=== PATIENT | female | born 1985 | race Caucasian/White ===

== ENCOUNTER 2016-12-15 14:33 | Emergency (ER) | payer MEDICAID ==
[2016-12-15 14:34] VITALS: BMI 29.6
[2016-12-15 14:47] VITALS: TEMP 98.1
[2016-12-15] MEDS ORDERED: Sodium Chloride 0.9% 1,000 ML IV SCH (15:00)
--- NOTE | 2016-12-15 15:08 | ED PDOC ---
HPI: Abdomen Time Seen by Provider: 12/15/16 14:52 Chief Complaint (Nursing): Abdominal Pain Chief Complaint (Provider): Abdominal Pain History Per: Patient History/Exam Limitations: no limitations Onset/Duration Of Symptoms: Days (7 days) Outside of [place] travel?: No Current Symptoms Are (Timing): Still Present Location Of Pain/Discomfort: RLQ Associated Symptoms: Nausea. denies: Vomiting, Diarrhea, Chest Pain, Constipation Additional Complaint(s): Nallely Sadler, a 31 year old female, presents to the ED complaining of abdominal pain x7 days. The patient reports that she initially feels pain in her right lower quadrant but it radiates to her right lower back. Denies vomiting, diarrhea, constipation, abnormal vaginal discharge/bleeding, chest pain, shortness of breath but does report some nausea. PMD: Marcos Shah Abnormal Vaginal Bleeding: No Past Medical History Reviewed: Historical Data, Nursing Documentation, Vital Signs Vital Signs: Last Vital Signs Temp 98.1 F 12/15/16 14:45 Pulse 88 12/15/16 17:07 Resp 15 12/15/16 17:07 BP 130/86 12/15/16 17:07 Pulse Ox 99 12/15/16 17:42 - Medical History PMH: HTN - Surgical History Surgical History: (x3) - Family History Family History: States: Unknown Family Hx - Home Medications Home Medications: Ambulatory Orders Medication Instructions Recorded Loratadine [Claritin] 10 mg PO DAILY PRN #3 tab 06/27/15 Ondansetron ODT [Zofran ODT] 4 mg PO Q8H PRN #20 odt 06/27/15 Vitamins6 [ 1 tab PO DAILY #30 tab 06/27/15 Vitamins] Labetalol HCl [Trandate] 200 mg PO BID 12/31/15 Docusate Sodium/Sennosides A 1 tab PO HS #30 tab 01/03/16 [Senokot S 50 MG-8.6 MG] Ferrous Sulfate 325 mg PO BID #60 tablet 01/03/16 Ibuprofen [Motrin] 600 mg PO Q6 #30 tab 01/03/16 Oxycodone HCl/Acetaminophen 1 each PO Q4 #20 tablet 01/03/16 [Percocet 5-325 mg Tablet] Nitrofurantoin Macrocrystals 100 mg PO BID #14 cap 12/15/16 [Macrobid] - Allergies Allergies/Adverse Reactions: Allergies Allergy/AdvReac Type Severity Reaction Status Date / Time Penicillins Allergy RASH Verified 12/15/16 14:45 Review of Systems ROS Statement: Except As Marked, All Systems Reviewed And Found Negative Constitutional: Negative for: Fever Cardiovascular: Negative for: Chest Pain Respiratory: Negative for: Shortness of Breath Gastrointestinal: Positive for: Nausea, Abdominal Pain (Right lower quadrant abdominal pain that radiates to right lower back.). Negative for: Vomiting, Diarrhea, Constipation Genitourinary Female: Negative for: Vaginal Discharge, Vaginal Bleeding Physical Exam - Reviewed Nursing Documentation Reviewed: Yes Vital Signs Reviewed: Yes - Physical Exam Appears: Positive for: Non-toxic, No Acute Distress Head Exam: Positive for: ATRAUMATIC, NORMOCEPHALIC Skin: Positive for: Normal Color, Warm, Dry Eye Exam: Positive for: Normal appearance, EOMI, PERRL ENT: Positive for: Normal ENT Inspection Neck: Positive for: Normal, Painless ROM, Supple Cardiovascular/Chest: Positive for: Regular Rate, Rhythm, Chest Non Tender. Negative for: Tachycardia Respiratory: Positive for: Normal Breath Sounds. Negative for: Wheezing, Respiratory Distress Gastrointestinal/Abdominal: Positive for: Soft, Tenderness (Scant right upper quadrant tenderness;Left and right lower quadrant tenderness.). Negative for: Guarding, Rebound Back: Positive for: Normal Inspection Extremity: Positive for: Normal ROM. Negative for: Tenderness, Deformity, Swelling Neurologic/Psych: Positive for: Alert, Oriented, Gait - Laboratory Results Result Diagrams: 12/15/16 15:50 12/15/16 15:50 - ECG O2 Sat by Pulse Oximetry: 99 (RA) Pulse Ox Interpretation: Normal Medical Decision Making Medical Decision Makin:52 Initial Impression: 31 year old female presenting with right lower quadrant abdominal pain Differentials: UTI vs Pyelonephritis vs vs Appendicitis vs Diverticulitis vs Renal Colic Initial Plan: * Comp Metabolic Panel * Lipase * CBC * NS 1000ml IV 1000mls/hr * Toradol 30mg IVP * Upreg * Urinalysis * Reevaluation Scribe Attestation Documented by Barbara Noonan acting as a scribe for Riddhi Winslow MD. Provider Attestation: All medical record entries made by the Scribe were at my direction and personally dictated by me. I have reviewed the chart and agree that the record accurately reflects my personal performance of the history, physical exam, medical decision making, and the department course for this patient. I have also personally directed, reviewed, and agree with the discharge instructions and disposition. 4:02PM negative. Patient has hematuria with flank pain. This is concerning for kidney stone. Will get CT 5:34PM Patient has normal renal function, no fever and normal wbc. UA shows 14 wbc, with rare bacteria and small leukocytes but negative nitrates. She is not . Ucx sent. CT shows "multiple b/l nonobstructing renal calculi, R greater than left with largest R renal calculus 9mm and largest left renal calculus 4mm. No urinary tract obstruction." Patient is pain free in ED and tolerating po. I spoke to patient and at length. Spoke to PMD dr. Shah who is aware and agrees that since they are non-obstructing she can follow-up with urology even though they are large. Patient is and therefore cannot give flomax. Will give ceftriaxone 1gm IV in ED now and then dc with macrobid. Patient understands to return with any worsening symptoms, worsening pain, fever, or vomiting. Disposition - Clinical Impression Clinical Impression: Renal colic - Disposition Referrals: Annalee Andres MD [Medical Doctor] - Disposition: Routine/Home Disposition Time: 17:37 Condition: GOOD Additional Instructions: Follow up with urology within 2 days. Take full course of antibiotics. Return to ED if condition worsens. Follow-up with PMD within 2 days. Prescriptions: Nitrofurantoin Macrocrystals [Macrobid] 100 mg PO BID #14 cap Instructions: Kidney Stones (ED), Renal Colic (ED) Print Language: ROMANIAN
[2016-12-15 15:55] LABS: BASO % 0.3 % (0.0-2.0); EOS % 0.4 % (0.0-4.0); HEMATOCRIT 36.7 % (34.0-47.0); LYMPH # 2.5 K/uL (1.0-4.3); LYMPH % 29.5 % (20.0-40.0); MEAN CELL VOLUME 97.2 fl (81.0-99.0); MEAN CORPUSCULAR HEMOGLOBIN 32.7 pg (27.0-31.0); MEAN CORPUSCULAR HGB CONC 33.6 g/dL (33.0-37.0); MEAN PLATELET VOLUME 9.4 fl (7.2-11.7); MONO # 0.6 K/uL (0.0-0.8); MONO % 6.9 % (0.0-10.0); NEUT # 5.2 K/uL (1.8-7.0); NEUT % 62.9 % (50.0-75.0); NRBC % 0.2 % (0.0-0.0); RED CELL DISTRIBUTION WIDTH 13.7 % (11.5-14.5); WHITE BLOOD COUNT 8.3 K/uL (4.8-10.8)
[2016-12-15 16:02] LABS: RBC URINE 95 /hpf (0-3); URINE BACTERIA RARE (<OCC); URINE BILIRUBIN NEGATIVE (NEGATIVE); URINE BLOOD MODERATE (NEGATIVE); URINE COLOR YELLOW (YELLOW); URINE GLUCOSE (UA) NEG (Normal); URINE KETONE TRACE mg/dL (NEGATIVE); URINE LEUKOCYTE ESTERASE SMALL Leu/uL (Negative); URINE PROTEIN 30 mg/dL (NEGATIVE); URINE UROBILINOGEN 0.2-1.0 mg/dL (0.2-1.0); WBC URINE 14 /hpf (0-5)
[2016-12-15 16:10] LABS: ALB/GLOB RATIO 1.3 (1.0-2.1); ALKALINE PHOSPHATASE 102 U/L (38-126); ALT/SGPT 33 U/L (9-52); AST/SGOT 19 U/L (14-36); BILIRUBIN,TOTAL 0.3 mg/dl (0.2-1.3); BLOOD UREA NITROGEN 16 mg/dl (7-17); CALCIUM 9.3 mg/dL (8.4-10.2); CARBON DIOXIDE 24 mmol/L (22-30); CHLORIDE 105 mmol/L (98-107); GFR AFRICAN-AMERICAN > 60; GLUCOSE,RANDOM 80 mg/dL (65-105); LIPASE 69 U/L (23-300); POTASSIUM 4.5 MMOL/L (3.6-5.0); SODIUM 140 mmol/l (132-148); TOTAL PROTEIN 8.3 G/DL (6.3-8.2)
[2016-12-15 17:08] VITALS: PULSE 88
--- NOTE | 2016-12-15 17:18 | CT ---
PROCEDURE: CT Abdomen and Pelvis without intravenous contrast HISTORY: hematuria, flnak pain COMPARISON: None. TECHNIQUE: Without contrast.. Contrast Dose: 0 Radiation dose: Total exam DLP = 595.43 mGy-cm. This CT exam was performed using one or more of the following dose reduction techniques: Automated exposure control, adjustment of the mA and/or kV according to patient size, and/or use of iterative reconstruction technique. FINDINGS: LOWER THORAX: Unremarkable. LIVER: Unremarkable. No gross lesion or ductal dilatation. GALLBLADDER AND BILE DUCTS: Unremarkable. PANCREAS: Unremarkable. No gross lesion or ductal dilatation. SPLEEN: Unremarkable. ADRENALS: Unremarkable. No mass. KIDNEYS AND URETERS: Multiple bilateral renal calculi, right greater than left. Largest right renal calculus is in the lower pole, and measures 9 mm. No obstructing calculi. Largest left renal calculus is in the mid aspect and measures 4 mm. No renal mass. No hydronephrosis. VASCULATURE: Unremarkable. No aortic aneurysm. BOWEL: Unremarkable. No obstruction. No gross mural thickening. APPENDIX: Unremarkable. Normal appendix. PERITONEUM: Unremarkable. No free fluid. No free air. LYMPH NODES: Unremarkable. No enlarged lymph nodes. BLADDER: Suboptimally distended. REPRODUCTIVE: Normal uterus. BONES: No acute fracture. OTHER FINDINGS: None. IMPRESSION: Multiple bilateral nonobstructing renal calculi, right greater than left. Largest right renal calculus 9 mm and largest left renal calculus 4 mm. No urinary tract obstruction. Otherwise unremarkable.
[2016-12-15 17:36] VITALS: O2SAT 99
[2016-12-15] MEDS ORDERED: cefTRIAXone (Rocephin) 1 gm Inj IVPB STA (17:36)
[2016-12-15 19:00] VITALS: BP 132/82
[2016-12-15 19:02] VITALS: RESP 18
== END 2016-12-15 19:00 | disposition home or self-care (01) ==
LOC: H.ER 14:33
DX: N23 Unspecified renal colic (principal); I10 Essential (primary) hypertension; Z88.0 Allergy status to penicillin

== ENCOUNTER 2018-06-24 19:31 | Emergency (ER) | payer MEDICAID ==
[2018-06-24 19:32] VITALS: BMI 27.1
[2018-06-24 19:43] VITALS: RESP 18
--- NOTE | 2018-06-24 20:28 | ED PDOC ---
HPI: Chest Pain Time Seen by Provider: 06/24/18 19:43 Chief Complaint (Nursing): Chest Pain Chief Complaint (Provider): Chest Pain History Per: Patient History/Exam Limitations: no limitations Onset/Duration Of Symptoms: Hrs (x3) Current Symptoms Are (Timing): Still Present Additional Complaint(s): 33 year old female with pmhx of HTN and kidney stones presents to the ED for evaluation of mid-sternal and epigastric chest pain for the past three hours. She is also noting having some pain in her posterior left shoulder. Last week, patient states she had a cold and had similar chest pain when she sneezed or coughed. Otherwise, denies shortness of breath, vomiting, and other complaints. PMD: Dr. Jessica Past Medical History Reviewed: Historical Data, Nursing Documentation, Vital Signs Vital Signs: Last Vital Signs Temp 98.6 F 06/24/18 19:37 Pulse 80 06/24/18 20:01 Resp 18 06/24/18 19:37 BP 155/87 H 06/24/18 19:37 Pulse Ox 98 06/24/18 19:37 - Medical History PMH: Anemia, HTN, Kidney Stones, Chronic Kidney Disease - Surgical History Surgical History: (x3) - Family History Family History: States: Unknown Family Hx - Social History Current smoker - smoking cessation education provided: No Alcohol: None Drugs: Denies - Immunization History Hx Tetanus Toxoid Vaccination: No Hx Influenza Vaccination: No (2015) Hx Pneumococcal Vaccination: No (2015) - Home Medications Home Medications: Ambulatory Orders Medication Instructions Recorded Labetalol HCl [Trandate] 100 mg PO BID 12/31/15 Labetalol [Trandate] 100 mg PO BID #60 tab 04/20/18 Oseltamivir Phosphate [Tamiflu] 75 mg PO BID #10 capsule 06/24/18 - Allergies Allergies/Adverse Reactions: Allergies Allergy/AdvReac Type Severity Reaction Status Date / Time Penicillins Allergy RASH Verified 01/27/17 16:02 Review of Systems ROS Statement: Except As Marked, All Systems Reviewed And Found Negative Cardiovascular: Positive for: Chest Pain (mid-sternal, epigastric) Respiratory: Negative for: Shortness of Breath Gastrointestinal: Negative for: Vomiting Musculoskeletal: Positive for: Shoulder Pain (posterior left) Physical Exam - Reviewed Nursing Documentation Reviewed: Yes Vital Signs Reviewed: Yes - Physical Exam Appears: Positive for: No Acute Distress Head Exam: Positive for: ATRAUMATIC, NORMAL INSPECTION, NORMOCEPHALIC Skin: Positive for: Normal Color, Warm, DRY Eye Exam: Positive for: EOMI, Normal appearance, PERRL ENT: Positive for: Normal ENT Inspection Neck: Positive for: Normal, Painless ROM, Supple Cardiovascular/Chest: Positive for: Regular Rate, Rhythm Respiratory: Positive for: Normal Breath Sounds. Negative for: Respiratory Distress Gastrointestinal/Abdominal: Positive for: Normal Exam, Soft. Negative for: Tenderness Back: Positive for: Normal Inspection Extremity: Positive for: Normal ROM Neurologic/Psych: Positive for: Alert, Oriented (x3) - Laboratory Results Result Diagrams: 06/24/18 21:01 06/24/18 21:01 - ECG ECG: Positive for: Interpreted By Me, Viewed By Me ECG Rhythm: Positive for: Normal QRS, Normal ST Segment, Sinus Rhythm (normal) O2 Sat by Pulse Oximetry: 98 (RA) Pulse Ox Interpretation: Normal Medical Decision Making Medical Decision Making: Time: 2004 Initial Impression: workup for chest pain, not likely to be cardiac in origin Initial Plan: --BMP --Trop I --CBC with differential --CXR --Toradol 30mg IVP --Influenza A B swab --Reassess 2240 Patient flu A (+). Rest of workup was negative. Patient to be discharged home with Tamiflu. Return parameters discussed. ---- Scribe Attestation: Documented by Marcia Shore, acting as a scribe for Mayte Molina MD. Provider Scribe Attestation: All medical record entries made by the Scribe were at my direction and personally dictated by me. I have reviewed the chart and agree that the record accurately reflects my personal performance of the history, physical exam, medical decision making, and the department course for this patient. I have also personally directed, reviewed, and agree with the discharge instructions and disposition. Disposition - Clinical Impression Clinical Impression: Influenza A - Disposition Condition: IMPROVED Additional Instructions: Take Tamiflu as precribed. Follow up with primary medical doctor in one week. Increase fluids and rest while symptoms last. Prescriptions: Oseltamivir Phosphate [Tamiflu] 75 mg PO BID #10 capsule Instructions: Flu, Adult (DC) Forms: [employer] (Amharic), [employer] (Nicaraguan) Print Language: ROMANSH
[2018-06-24 21:43] LABS: BASO % 0.5 % (0.0-2.0); EOS % 0.7 % (0.0-4.0); LYMPH # 2.9 K/uL (1.0-4.3); LYMPH % 38.6 % (20.0-40.0); MEAN CELL VOLUME 88.6 fl (81.0-99.0); MEAN CORPUSCULAR HEMOGLOBIN 29.4 pg (27.0-31.0); MEAN CORPUSCULAR HGB CONC 33.2 g/dL (33.0-37.0); MEAN PLATELET VOLUME 9.8 fl (7.2-11.7); MONO # 0.6 K/uL (0.0-0.8); MONO % 7.6 % (0.0-10.0); NEUT # 3.9 K/uL (1.8-7.0); NEUT % 52.6 % (50.0-75.0); NRBC % 0.6 % (0.0-0.0); RBC 3.41 Mil/uL (3.80-5.20); RED CELL DISTRIBUTION WIDTH 15.3 % (11.5-14.5); WHITE BLOOD COUNT 7.5 K/uL (4.8-10.8)
[2018-06-24 21:47] LABS: BLOOD UREA NITROGEN 18 mg/dl (7-17); CALCIUM 9.1 mg/dL (8.4-10.2); GFR NON-AFRICAN AMERICAN > 60
[2018-06-24 23:54] VITALS: BP 116/90; PULSE 78; TEMP 98.2; O2SAT 100
--- NOTE | 2018-06-25 11:35 | RAD ---
Date of service: 06/24/2018 HISTORY: chest pain COMPARISON: No prior. TECHNIQUE: Chest PA and lateral FINDINGS: LUNGS: No active pulmonary disease. PLEURA: No significant pleural effusion identified. No pneumothorax apparent. CARDIOVASCULAR: No aortic atherosclerotic calcification present. Normal cardiac size. No pulmonary vascular congestion. OSSEOUS STRUCTURES: No significant abnormalities. VISUALIZED UPPER ABDOMEN: Normal. OTHER FINDINGS: None. IMPRESSION: No active disease.
== END 2018-06-25 00:02 | disposition home or self-care (01) ==
LOC: H.ER 19:31
DX: J09.X2 Influenza due to identified novel influenza A virus with other respiratory manifestations (principal)
CPT/HCPCS: 71046; 80048; 81025; 84484; 85025; 87804; 96374; 99284; J1885

== ENCOUNTER 2018-11-23 17:36 | Emergency (ER) | payer MEDICAID ==
[2018-11-23 17:37] VITALS: BMI 27.1
[2018-11-23 18:11] VITALS: BP 168/102; PULSE 82; RESP 17; TEMP 98.9; O2SAT 98
[2018-11-23] MEDS ORDERED: Sodium Chloride 0.9% 1,000 ML IV STA (19:22)
--- NOTE | 2018-11-23 19:41 | ED PDOC ---
Syncope/Near Syncope/Dizziness Time Seen by Provider: 11/23/18 19:22 Chief Complaint (Nursing): Abdominal Pain Chief Complaint (Provider): Abdominal Pain History Per: Patient History/Exam Limitations: no limitations Onset/Duration Of Symptoms: Intermittent Episodes (x2 weeks) Current Symptoms Are (Timing): Still Present Additional Complaint(s): 33 year old female with medical history of hypertension, presents to the emergency department with a complaint of palpitations associated with chills, intermittent dizziness, generalized weakness, and poor well-being for the past 2 weeks. Patient, initially, was evaluated by her PCP and prescribed Meclizine which has helped with symptoms. She admits to increased stress factors. Otherwise, she denies any fever, chills, headache, shortness of breath, chest pain, or cough. Past Medical History Reviewed: Historical Data, Nursing Documentation, Vital Signs Vital Signs: Last Vital Signs Temp 98.9 F 11/23/18 18:05 Pulse 82 11/23/18 18:05 Resp 17 11/23/18 18:05 BP 168/102 H 11/23/18 18:05 Pulse Ox 98 11/23/18 18:05 Primary Care Provider: Marcos Shah - Medical History PMH: Anemia, HTN, Kidney Stones, Chronic Kidney Disease - Surgical History Surgical History: (x3) - Family History Family History: States: Unknown Family Hx - Immunization History Hx Tetanus Toxoid Vaccination: No Hx Influenza Vaccination: No (2015) Hx Pneumococcal Vaccination: No (2015) - Home Medications Home Medications: Ambulatory Orders Medication Instructions Recorded Labetalol HCl [Trandate] 100 mg PO BID 12/31/15 Labetalol [Trandate] 100 mg PO BID #60 tab 04/20/18 Oseltamivir Phosphate [Tamiflu] 75 mg PO BID #10 capsule 06/24/18 - Allergies Allergies/Adverse Reactions: Allergies Allergy/AdvReac Type Severity Reaction Status Date / Time Penicillins Allergy RASH Verified 01/27/17 16:02 Review of Systems ROS Statement: Except As Marked, All Systems Reviewed And Found Negative Constitutional: Positive for: Chills, Weakness, Malaise. Negative for: Fever Cardiovascular: Positive for: Palpitations. Negative for: Chest Pain Respiratory: Negative for: Cough, Shortness of Breath Neurological: Positive for: Dizziness. Negative for: Headache Psych: Positive for: Anxiety (stressed) Physical Exam - Reviewed Nursing Documentation Reviewed: Yes Vital Signs Reviewed: Yes - Physical Exam Appears: Positive for: Non-toxic, No Acute Distress Head Exam: Positive for: ATRAUMATIC, NORMAL INSPECTION, NORMOCEPHALIC Skin: Positive for: Normal Color Eye Exam: Positive for: Normal appearance, EOMI, PERRL ENT: Positive for: Normal ENT Inspection, Moist Mucous Membranes. Negative for: Pharyngeal Erythema Neck: Positive for: Normal, Supple Cardiovascular/Chest: Positive for: Regular Rate, Rhythm, Chest Non Tender Respiratory: Positive for: Normal Breath Sounds. Negative for: Respiratory Distress Gastrointestinal/Abdominal: Positive for: Normal Exam, Soft. Negative for: Tenderness Back: Positive for: Normal Inspection. Negative for: L CVA Tenderness, R CVA Tenderness Extremity: Positive for: Normal ROM (upper/lower) Neurological/Psych: Positive for: Awake, Alert, Normal Tone, Oriented. Negative for: Motor/Sensory Deficits - Laboratory Results Result Diagrams: 11/23/18 20:05 11/23/18 20:05 - ECG O2 Sat by Pulse Oximetry: 98 (RA) Pulse Ox Interpretation: Normal Medical Decision Making Medical Decision Making: Initial Impression: 33 year old female with nonspecific chills, weakness, and palpitations. Initial Plan: * EKG * Labs including UA * IV fluids Time: 2124 --Labs reviewed: (-) significant clinical abnormality. Upon provider reevaluation, patient is medically stable and requires no further treatment in the ED at this time. Provider discussed with patient regarding possible underlying anxiety and depression for palpitation ideology. Patient verbalized agreement and expresses interest in outpatient mental health facility. Findings and plan were discussed with patient who verbalizes understanding. Patient will be discharged home with referral to mental health clinic. Counseling was provided and all questions were answered regarding diagnosis. There is agreement to discharge plan. Return precautions discussed. Clinical Impression: palpitations Scribe Attestation: Documented by Vanessa Escalona, acting as a scribe for Ed Prince MD. Provider Scribe Attestation: All medical record entries made by the Scribe were at my direction and personally dictated by me. I have reviewed the chart and agree that the record accurately reflects my personal performance of the history, physical exam, medical decision making, and the department course for this patient. I have also personally directed, reviewed, and agree with the discharge instructions and disposition. Disposition - Clinical Impression Clinical Impression: Palpitations - Patient ED Disposition Is Patient to be Admitted: No Counseled Patient/Family Regarding: Studies Performed, Diagnosis, Need For Followup - Disposition Disposition: Routine/Home Disposition Time: 21:25 Condition: STABLE Instructions: Palpitations Forms: [facility] (Portuguese) Print Language: TURKMEN
[2018-11-23 20:24] LABS: BASO # 0.1 K/uL (0.0-0.2); BASO % 1.2 % (0.0-2.0); EOS # 0.1 K/uL (0.0-0.7); EOS % 1.1 % (0.0-4.0); HEMOGLOBIN 9.9 g/dL (12.0-16.0); LYMPH % 39.4 % (20.0-40.0); MEAN CORPUSCULAR HEMOGLOBIN 26.8 pg (27.0-31.0); MEAN CORPUSCULAR HGB CONC 31.9 g/dL (33.0-37.0); MEAN PLATELET VOLUME 9.2 fl (7.2-11.7); MONO # 0.6 K/uL (0.0-0.8); MONO % 11.4 % (0.0-10.0); NEUT # 2.4 K/uL (1.8-7.0); NEUT % 46.9 % (50.0-75.0); NRBC % 0.1 % (0.0-0.0); RBC 3.69 Mil/uL (3.80-5.20); WHITE BLOOD COUNT 5.1 K/uL (4.8-10.8)
[2018-11-23 20:30] LABS: SQUAMOUS EPITHIAL 4 /hpf (0-5); URINE BACTERIA RARE (<OCC); URINE BILIRUBIN NEGATIVE (NEGATIVE); URINE BLOOD NEGATIVE (NEGATIVE); URINE CLARITY SLIGHTY-CLOUDY (Clear); URINE COLOR AMBER (YELLOW); URINE GLUCOSE (UA) NEG (NEGATIVE); URINE LEUKOCYTE ESTERASE NEG Leu/uL (Negative); URINE PROTEIN 100 mg/dL (NEGATIVE)
[2018-11-23 20:34] LABS: URINE UROBILINOGEN 0.2 mg/dL (0.2-1.0)
[2018-11-23 20:35] LABS: MEAN CELL VOLUME 83.9 fl (81.0-99.0)
[2018-11-23 20:36] LABS: ALB/GLOB RATIO 1.3 (1.0-2.1); ALBUMIN 4.7 g/dL (3.5-5.0); BLOOD UREA NITROGEN 15 mg/dl (7-17); CALCIUM 9.4 mg/dL (8.4-10.2); GFR NON-AFRICAN AMERICAN > 60
[2018-11-23 21:02] LABS: ALT/SGPT 11 U/L (9-52); AST/SGOT 36 U/L (14-36)
--- NOTE | 2018-11-24 19:16 | CARD ---
APPROVED REPORT Date of service: 11/23/2018 EKG Measurement Heart [id number] <Conclusion> Sinus bradycardia Minimal voltage criteria for LVH, may be normal variant ST elevation, probably due to early repolarization Borderline ECG
== END 2018-11-23 23:20 | disposition home or self-care (01) ==
LOC: H.ER 17:36
DX: R00.2 Palpitations (principal); I12.9 Hypertensive chronic kidney disease with stage 1 through stage 4 chronic kidney disease, or unspecified chronic kidney disease; N18.9 Chronic kidney disease, unspecified; Z87.442 Personal history of urinary calculi; Z88.0 Allergy status to penicillin
CPT/HCPCS: 80053; 81003; 81025; 84443; 85025; 93005; 99284; J7030